=== PATIENT | female | born 2000 | race African-American/Black ===

== ENCOUNTER 2020-05-10 13:50 | Emergency (ER) | payer OTHER ==
[~2020-05-10] VITALS: Ht 160 cm; Wt 52.2 kg
--- NOTE | 2020-05-10 14:00 | NUR ---
ED Nurse Note: Pt walked in from home c/o menstrual cramps x 2 days. Pt reports changing 5 tampons a day. Respirations even and unlabored on room air. Vitals stable as documented. A+Ox4, speaking in complete sentences.
[2020-05-10 14:15] VITALS: BP 126/84
[2020-05-10] MEDS ORDERED: Ketorolac 30mg Inj IV ONE (14:30)
[2020-05-10 14:49] LABS: BASOPHILS % (AUTO) 1.9 % (0.0-2.0); EOSINOPHILS % (AUTO) 3.7 % (0.0-3.0); HEMATOCRIT 41.8 % (37.0-47.0); HEMOGLOBIN 13.7 G/DL (12.0-16.0); LYMPHOCYTES % (AUTO) 27.8 % (20.0-45.0); MEAN CORPUSCULAR VOLUME 79 FL (80-99); MONOCYTES % (AUTO) 5.7 % (1.0-10.0); NEUTROPHILS % (AUTO) 60.9 % (45.0-75.0); PLATELET COUNT 219 K/UL (150-450); RED BLOOD COUNT 5.28 M/UL (4.20-5.40); RED CELL DISTRIBUTION WIDTH 13.3 % (11.6-14.8); WHITE BLOOD COUNT 7.6 K/UL (4.8-10.8)
[2020-05-10 14:53] LABS: APPEARANCE,URINE CLEAR; BILIRUBIN, URINE NEGATIVE (NEGATIVE); COLOR,URINE PALE YELLOW; GLUCOSE, URINE (UA) NEGATIVE (NEGATIVE); KETONES,URINE NEGATIVE (NEGATIVE); LEUKOCYTE ESTERASE ,URINE NEGATIVE (NEGATIVE); NITRITE,URINE NEGATIVE (NEGATIVE); PH,URINE 5 (4.5-8.0); PROTEIN,URINE 2+ (NEGATIVE); UROBILINOGEN,URINE NORMAL MG/DL (0.0-1.0)
[2020-05-10 15:15] LABS: ANION GAP 12 mmol/L (5-15); BLOOD UREA NITROGEN 10 mg/dL (7-18); CALCIUM 8.7 MG/DL (8.5-10.1); CARBON DIOXIDE 24 MMOL/L (21-32); CHLORIDE 106 MMOL/L (98-107); CREATININE 0.7 MG/DL (0.55-1.30); POTASSIUM 4.2 MMOL/L (3.5-5.1); SODIUM 142 MMOL/L (136-145)
[2020-05-10 15:28] LABS: ALANINE AMINOTRANSFERASE 12 U/L (12-78); ALBUMIN 3.8 G/DL (3.4-5.0); ALBUMIN/GLOBULIN RATIO 0.9 (1.0-2.7); ALKALINE PHOSPHATASE 50 U/L (46-116); ASPARTATE AMINO TRANSFERASE 13 U/L (15-37); BILIRUBIN,TOTAL 1.3 MG/DL (0.2-1.0)
[2020-05-10 15:34] LABS: BILIRUBIN,DIRECT 0.2 MG/DL (0.0-0.3)
--- NOTE | 2020-05-10 15:37 | Emergency Room Report ---
History of Present Illness General Chief Complaint: Abdominal Pain Source: Patient Present Illness HPI 19-year-old female with no known significant past medical history here complaining of 3 days of 10 menstrual cramp. Patient reports that she is regularly gets her menstruation every month and usually has a lot of pain first day of her menstruation however this time it has lingered longer. Reports that she has been taking Advil [id number] without any improvement. Denies any nausea vomiting, headache and dizziness. Denies being sexually active at this time and denies . Reports that she goes through changing of 5 tampons every day and then she is clotting a lot. Denies any trauma to the area. Denies tobacco smoke regular alcohol intake. Patient reports that she has not been sexually active for over 6 months however has been sexually active in the past. Denies any vaginal discharge. Allergies: Coded Allergies: No Known Allergies (Unverified , 05/10/20) COVID-19 Screening Contact w/high risk pt: No Experienced COVID-19 symptoms?: No COVID-19 Testing performed [employer] SUPERVISOR: No Patient History Past Medical History: see triage record Past Surgical History: none Pertinent Family History: none Last Menstrual Period: 05/08/20 Now: No Immunizations: UTD Reviewed Nursing Documentation: PMH: Agreed; PSxH: Agreed Nursing Documentation-PMH Past Medical History: No Stated History Review of Systems All Other Systems: negative except mentioned in HPI Physical Exam Vital Signs Date Time Temp Pulse Resp B/P (MAP) Pulse Ox O2 Delivery O2 Flow Rate FiO2 05/10/20 13:58 97.9 83 16 118/88 (98) 98 Room Air Sp02 EP Interpretation: reviewed, normal General Appearance: alert, non-toxic, mild distress Head: normocephalic, atraumatic Eyes: bilateral eye normal inspection, bilateral eye PERRL ENT: hearing grossly normal, normal pharynx, no angioedema, normal voice Neck: full range of motion, supple/symm/no masses Respiratory: chest non-tender, lungs clear, normal breath sounds, speaking full sentences Cardiovascular #1: regular rate, rhythm, no edema Gastrointestinal: normal bowel sounds, non tender, soft, non-distended, no guarding, no rebound Rectal: deferred Genitourinary: no CVA tenderness Musculoskeletal: back normal Neurologic: alert, motor strength/tone normal, oriented x3, sensory intact, responsive, speech normal Psychiatric: judgement/insight normal, memory normal, mood/affect normal, no suicidal/homicidal ideation Skin: no rash Lymphatic: no adenopathy Medical Decision Making PA Attestation All my diagnosis and treatment plans were reviewed ad discussed with my supervising physician Dr. White Diagnostic Impression: Primary Impression: Ovarian cyst Additional Impression: Severe menstrual cramps ER Course 19-year-old female with no known significant past medical history here complaining of 3 days of 10 menstrual cramp. Patient reports that she is regularly gets her menstruation every month and usually has a lot of pain first day of her menstruation however this time it has lingered longer. Reports that she has been taking Advil [id number] without any improvement. Denies any nausea vomiting, headache and dizziness. Denies being sexually active at this time and denies . Reports that she goes through changing of 5 tampons every day and then she is clotting a lot. Denies any trauma to the area. Denies tobacco smoke regular alcohol intake. Patient reports that she has not been sexually active for over 6 months however has been sexually active in the past. Denies any vaginal discharge. Ddx considered but are not limited to: UTI, pyelonephritis, PID, vaginitis, d ysfunctional uterine bleeding, ovarian cyst, uterine fibroids, ectopic Vital signs: are WNL, pt. is afebrile H&PE are most consistent with: Multiple ovarian cyst, dysmenorrhea ORDERS: UA, urine cx, urine , CBC, CMP, pelvic and transvaginal ultrasound, ibuprofen, dicyclomine ED INTERVENTIONS: Toradol DISCHARGE: At this time pt. is stable for d/c to home. Will provide printed patient care instructions, and any necessary prescriptions. Care plan and follow up instructions have been discussed with the patient prior to discharge. Advised patient to follow-up with a criminal justice teacher and gave a list of clinics that patient can follow-up with also since patient mentioned that has a lot of abdominal cramping at the beginning and in the middle of her menstruation with some changes in bowel movement I prescribed dicyclomine in addition to ibuprofen. Advised patient return to the emergency room if worsening symptoms. CT/MRI/US Diagnostic Results CT/MRI/US Diagnostic Results : Imaging Test Ordered: Pelvic ultrasound Impression Multiple ovarian cyst on the right side a few ovarian cyst on the left otherwise within normal limits Last Vital Signs Date Time Temp Pulse Resp B/P (MAP) Pulse Ox O2 Delivery O2 Flow Rate FiO2 05/10/20 14:15 98.1 72 16 126/84 98 Room Air Disposition: HOME, SELF-CARE Condition: Stable Scripts Dicyclomine Hcl* (DICYCLOMINE HCL*) 10 Mg Capsule 10 MG ORAL QID, #20 CAP Prov: Juvenal Guevara 05/10/20 Ibuprofen (Ibu) 800 Mg Tablet 800 MG PO TID, #30 TAB Prov: Juvenal Guevara 05/10/20 Referrals: NOT CHOSEN IPA/,REFERRING (PCP) Patient Instructions: Dysmenorrhea, [id number], Ovarian Cyst, [id number] Additional Instructions: Take medication as directed, follow-up with criminal justice teacher, if worsening symptoms return to emergency room Juvenal Guevara May 10, 2020 15:37
[2020-05-10] MEDS ORDERED: DICYCLOMINE HCL10 MG ORAL (15:38)
[2020-05-10] MEDS ORDERED: IBU800 MG PO (15:38)
[2020-05-10 15:45] VITALS: BP 131/76
--- NOTE | 2020-05-10 15:45 | NUR ---
ER DISCHARGE NOTE: Patient is cleared to be discharged per ERMD, pt is aox4, on room air, with stable vital signs. pt was given dc and prescription instructions, pt was able to verbalize understanding, pt id band and iv site removed without complications. pt is able to ambulate with steady gait. pt took all belongings.
--- NOTE | 2020-05-10 16:05 | Diagnostic Imaging Report ---
EXAM: US Pelvis Transabdominal and transvaginal, Complete CLINICAL HISTORY: PAIN TECHNIQUE: Real-time complete transabdominal and transvaginal pelvic ultrasound with image documentation. Transvaginal images were obtained to better evaluate endometrium and ovaries. COMPARISON: No relevant prior studies available. FINDINGS: Uterus/cervix: Uterus measures 6.5 x 4.6 x 3.7 cm. Endometrial stripe thickness of 2.9 mm. No myometrial mass. Right ovary: Right ovary measures 3.5 x 3.4 x 1.9 cm with estimated volume of 11.5 cc. Normal Doppler blood flow. Subcentimeter peripheral anechoic follicles. Left ovary: Left ovary measures 2.6 x 2.5 x 1.4 cm with estimated volume of 4.7 cc. Normal Doppler blood flow. Peripheral anechoic follicles Free fluid: Small volume of free fluid in the pelvic cul-de-sac. Bladder: Unremarkable as visualized. Wall is normal thickness for degree of distention. IMPRESSION: 1. Small volume of free fluid in the pelvic cul-de-sac. 2. Multiple subcentimeter follicles versus physiologic cysts in bilateral ovaries.
--- NOTE | 2020-05-10 16:12 | Diagnostic Imaging Report ---
Indication: Pelvic pain, negative urine test Technique: Transabdominal and transvaginal images of the pelvis. Doppler interrogation of the ovaries Comparison: none Findings: Uterus measures 6.6 cm length by 3.7 cm AP. The endometrium measures 3 mm thick. No myometrial abnormality. Small amount of free cul-de-sac fluid demonstrated. Right ovary measures 3.5 cm length. The left ovary measures 2.6 cm length. Normal ovarian Doppler signal demonstrated Impression: Negative
== END 2020-05-10 15:45 | disposition home or self-care (01) ==
LOC: EMR 14:22
DX: N83.202 Unspecified ovarian cyst, left side (principal); N83.201 Unspecified ovarian cyst, right side; N94.6 Dysmenorrhea, unspecified
CPT/HCPCS: 36415; 76830; 76856; 80053; 81003; 81025; 82248; 85025; 96374; 96375; 99284; J1885; J2405